=== PATIENT | female | born 1945 | race Hispanic/Latino ===

== ENCOUNTER 2021-03-28 18:05 | Emergency (ER) | payer OTHER ==
[~2021-03-28] VITALS: Ht 162.6 cm; Wt 59.0 kg
[2021-03-28 20:45] LABS: BASOPHILS % 0.3 % (0.0-1.0); EOSINOPHILS # (AUTO) 0.1 (0.0-0.4); EOSINOPHILS % 0.9 % (0.0-6.0); HEMATOCRIT 35.8 % (34.2-44.1); HEMOGLOBIN 11.8 g/dL (12.0-16.0); LYMPHOCYTES # (AUTO) 2.8 (1.0-3.2); LYMPHOCYTES % 36.5 % (18.0-39.1); MEAN CORPUSCULAR HEMOGLOBIN 30.7 pg (28-32); MEAN CORPUSCULAR VOLUME 93.2 fL (81-99); MONOCYTES # (AUTO) 0.6 (0.2-0.8); MONOCYTES % 7.9 % (4.4-11.3); NEUTROPHILS # (AUTO) 4.1 (2.1-6.9); PLATELET COUNT 247 x10e3/uL (140-360); RED BLOOD COUNT 3.84 x10e6/uL (3.6-5.1); RED CELL DISTRIBUTION WIDTH 13.3 % (11.7-14.4)
[2021-03-28 20:49] LABS: ANION GAP 15.6 mmol/L (8-16); BLOOD UREA NITROGEN 16 mg/dL (7-26); BUN/CREATININE RATIO 20 (6-25); CALCIUM 9.5 mg/dL (8.4-10.2); CARBON DIOXIDE 27 mmol/L (22-29); CHLORIDE 103 mmol/L (98-107); CREATININE, SERUM 0.81 mg/dL (0.57-1.11); EST GLOMERULAR FILTRATION RATE > 60 ML/MIN (60-); GLUCOSE 105 mg/dL (74-118); POTASSIUM 3.6 mmol/L (3.5-5.1); SODIUM 142 mmol/L (136-145)
[2021-03-28] MEDS ORDERED: IOPAMIDOL 370 MG/ML 200 ML INFUS..BTL INJ ONE (21:10)
[2021-03-28] MEDS ORDERED: SODIUM CHLORIDE 0.9% 50ML 50 ML ONE (21:10)
[2021-03-28 22:28] VITALS: BP 168/72
== END 2021-03-28 22:29 | disposition home or self-care (01) ==
LOC: ER 18:10
DX: M25.512 Pain in left shoulder (principal); W07.XXXA Fall from chair, initial encounter; Y92.008 Other place in unspecified non-institutional (private) residence as the place of occurrence of the external cause; I10 Essential (primary) hypertension; Z86.73 Personal history of transient ischemic attack (TIA), and cerebral infarction without residual deficits
CPT/HCPCS: 36415; 70450; 71045; 71260; 72125; 80048; 85025; 99284; Q9967

== ENCOUNTER 2021-08-02 08:07 | Observation (INO) | payer OTHER ==
[~2021-08-02] VITALS: Ht 162.6 cm; Wt 59.0 kg
[2021-08-02] VITALS (7 sets, daily range): BP systolic 132–136; BP diastolic 56–67
[2021-08-02 08:57] LABS: BASOPHILS % 0.2 % (0.0-1.0); EOSINOPHILS # (AUTO) 0.3 (0.0-0.4); EOSINOPHILS % 5.3 % (0.0-6.0); HEMATOCRIT 36.9 % (34.2-44.1); LYMPHOCYTES # (AUTO) 1.9 (1.0-3.2); LYMPHOCYTES % 37.8 % (18.0-39.1); MEAN CORPUSCULAR HEMOGLOBIN 30.5 pg (28-32); MEAN CORPUSCULAR HGB CONC 32.5 g/dL (31-35); MEAN CORPUSCULAR VOLUME 93.7 fL (81-99); MONOCYTES # (AUTO) 0.3 (0.2-0.8); MONOCYTES % 6.3 % (4.4-11.3); NEUTROPHILS # (AUTO) 2.4 (2.1-6.9); NEUTROPHILS % 49.6 % (38.7-80.0); PLATELET COUNT 312 x10e3/uL (140-360); RED BLOOD COUNT 3.94 x10e6/uL (3.6-5.1); RED CELL DISTRIBUTION WIDTH 14.4 % (11.7-14.4)
[2021-08-02] MEDS ORDERED: LORAZEPAM INJ 2 MG/ML VIAL IV ONE (09:00)
[2021-08-02 09:08] LABS: CLARITY,URINE SL CLOUDY (CLEAR); COLOR,URINE YELLOW (YELLOW)
[2021-08-02 09:09] LABS: KETONES,URINE NEGATIVE (NEGATIVE); LEUKOCYTE ESTERASE ,URINE NEGATIVE (NEGATIVE); NITRITE,URINE NEGATIVE (NEGATIVE); PROTEIN,URINE DIPSTICK TRACE (NEGATIVE); URINE UROBILINOGEN 0.2 mg/dL (0.2 - 1)
[2021-08-02 09:10] LABS: AMPHETAMINES SCREEN,URINE NEGATIVE (NEGATIVE); BENZODIAZEPINES SCREEN,URINE POSITIVE (NEGATIVE); PHENCYCLIDINE SCREEN,URINE NEGATIVE (NEGATIVE)
[2021-08-02 09:11] LABS: INR 1.05; PROTHROMBIN TIME 13.9 seconds (11.9-14.5)
[2021-08-02 09:12] LABS: PARTIAL THROMBOPLASTIN TIME 33.2 seconds (23.8-35.5)
[2021-08-02 09:16] LABS: ALBUMIN 4.2 g/dL (3.5-5.0); ALBUMIN/GLOBULIN RATIO 1.1 (0.8-2.0); ANION GAP 17.8 mmol/L (8-16); CALCIUM 9.3 mg/dL (8.4-10.2); CREATININE, SERUM 0.81 mg/dL (0.57-1.11); MAGNESIUM 1.9 MG/DL (1.3-2.1); POTASSIUM 3.8 mmol/L (3.5-5.1)
[2021-08-02 09:22] LABS: CREATINE KINASE MB 0.7 ng/mL (0-5.0)
[2021-08-02 09:35] LABS: BACTERIA,URINE RARE /HPF; EPITHELIAL CELLS,URINE FEW /LPF; RBC,URINE 0-5 /HPF (0-5); WBC,URINE (MAN) 0-5 /HPF (0-5)
[2021-08-02] MEDS ORDERED: LEVETIRACETAM 500MG/5ML VIAL 1,000 MG in SODIUM CHLORIDE 0.9% 100 ML 100 ML IV ONE (10:15)
[2021-08-02] MEDS ORDERED: ONDANSETRON HCL INJ 2MG/ML 2ML 2 MG/ML VIAL IV PRN (10:15)
[2021-08-02] MEDS ORDERED: SODIUM CHLORIDE 0.9% 1000ML 1,000 ML IV SCH (10:15)
[2021-08-02] MEDS ORDERED: PROZAC40 MG PO (12:33)
[2021-08-02] MEDS ORDERED: ALPRAZOLAM0.5 MG PO (12:33)
[2021-08-02] MEDS ORDERED: LEVOTHYROXINE25 MC1 PO (12:33)
[2021-08-02] MEDS ORDERED: MULTI-VITAMIN1 EACH PO (12:33)
[2021-08-02] MEDS ORDERED: AMLODIPINE BESYL5 MG PO (12:33)
[2021-08-02] MEDS ORDERED: IRBESARTAN150 MG PO (12:33)
[2021-08-02] MEDS ORDERED: LAMOTRIGINE100 MG PO (12:33)
[2021-08-02] MEDS ORDERED: TRICOR145 MG PO (12:33)
[2021-08-02] MEDS ORDERED: METOPROLOL SUCC50 MG PO (12:33)
[2021-08-02] MEDS ORDERED: METOPROLOL TART50 MG PO (12:40)
[2021-08-02] MEDS ORDERED: METOPROLOL SUCC25 MG PO (12:51)
[2021-08-02 14:07] LABS: CREATINE KINASE MB 0.9 ng/mL (0-5.0)
[2021-08-02] MEDS: LAMOTRIGINE 25 MG TAB PO SCH ×2 (17:37→20:49)
[2021-08-02] MEDS ORDERED: MIRTAZAPINE15 MG PO (17:40)
[2021-08-02 18:53] LABS: CREATINE KINASE MB 1.1 ng/mL (0-5.0)
[2021-08-02] MEDS ORDERED: AMLODIPINE BESYLATE 5 MG TAB PO SCH (21:00)
[2021-08-02] MEDS ORDERED: ALPRAZOLAM 0.25 MG TAB PO SCH (21:00)
[2021-08-02] MEDS ORDERED: MIRTAZAPINE 15 MG TAB PO SCH (21:00)
[2021-08-03] VITALS: BP 109/44
[2021-08-03 04:00] VITALS: BP 134/63
[2021-08-03] MEDS: LAMOTRIGINE 25 MG TAB PO SCH ×2 (05:26→09:19)
[2021-08-03] MEDS ORDERED: LEVOTHYROXINE SODIUM 25 MCG TABLET PO SCH (06:00)
[2021-08-03 06:30] LABS: BASOPHILS % 0.3 % (0.0-1.0); EOSINOPHILS # (AUTO) 0.3 (0.0-0.4); EOSINOPHILS % 5.1 % (0.0-6.0); HEMATOCRIT 36.7 % (34.2-44.1); HEMOGLOBIN 11.9 g/dL (12.0-16.0); LYMPHOCYTES # (AUTO) 3.1 (1.0-3.2); LYMPHOCYTES % 50.8 % (18.0-39.1); MEAN CORPUSCULAR HEMOGLOBIN 30.2 pg (28-32); MEAN CORPUSCULAR HGB CONC 32.4 g/dL (31-35); MEAN CORPUSCULAR VOLUME 93.1 fL (81-99); MONOCYTES # (AUTO) 0.5 (0.2-0.8); MONOCYTES % 8.3 % (4.4-11.3); NEUTROPHILS # (AUTO) 2.2 (2.1-6.9); NEUTROPHILS % 35.2 % (38.7-80.0); PLATELET COUNT 261 x10e3/uL (140-360); RED BLOOD COUNT 3.94 x10e6/uL (3.6-5.1); RED CELL DISTRIBUTION WIDTH 14.4 % (11.7-14.4)
[2021-08-03 06:57] LABS: ALBUMIN 3.7 g/dL (3.5-5.0); CALCIUM 8.9 mg/dL (8.4-10.2); CHOL/HDL RATIO 2.6 (3.0-3.6); CREATININE, SERUM 0.66 mg/dL (0.57-1.11)
[2021-08-03 07:24] LABS: CREATINE KINASE MB 2.4 ng/mL (0-5.0)
[2021-08-03 07:46] VITALS: BP 140/62
[2021-08-03 08:43] VITALS: BP 140/62
[2021-08-03] MEDS ORDERED: METOPROLOL SUCCINATE 50 MG TAB XL PO SCH (09:00)
[2021-08-03] MEDS ORDERED: IRBESARTAN 150 MG TAB PO SCH (09:00)
[2021-08-03] MEDS ORDERED: MULTIVITAMINS/MINERALS TAB PO SCH (09:00)
[2021-08-03] MEDS ORDERED: LEVETIRACETAM 500 MG TAB PO SCH (09:00)
[2021-08-03] MEDS ORDERED: FLUOXETINE HCL 20 MG CAP PO SCH (09:00)
[2021-08-03] MEDS ORDERED: KEPPRA500 MG PO (10:27)
[2021-08-03] MEDS ORDERED: FENOFIBRATE 145 MG TAB PO SCH (11:30)
== END 2021-08-03 11:24 | disposition home or self-care (01) ==
LOC: ER 08:43 → ERHOLD 10:18 → MED/SURG 11:21
PROVIDERS: ADMIT Internal Medicine; ATTEND Internal Medicine
DX: R56.9 Unspecified convulsions (principal); I69.354 Hemiplegia and hemiparesis following cerebral infarction affecting left non-dominant side; F32.9 Major depressive disorder, single episode, unspecified; F41.9 Anxiety disorder, unspecified; Z20.822 Contact with and (suspected) exposure to COVID-19; I10 Essential (primary) hypertension
CPT/HCPCS: 36415; 70450; 71045; 80053; 80061; 80307; 81001; 82550; 82553; 83735; 83880; 84484; 85025; 85610; 85730; 87086; 93005; 99284; G0378; J2060; J7030; U0002

== ENCOUNTER 2022-07-27 14:04 | Inpatient (IN) | payer OTHER ==
[~2022-07-27] VITALS: Ht 315 cm; Wt 59.0 kg
[~2022-07-27 14:04] MED LIST: ALPRAZOLAM0.5 MG PO; AMLODIPINE BESYL5 MG PO; IRBESARTAN150 MG PO; KEPPRA500 MG PO; LAMOTRIGINE100 MG PO; LEVOTHYROXINE25 MC1 PO; METOPROLOL SUCC25 MG PO; METOPROLOL SUCC50 MG PO; METOPROLOL TART50 MG PO; MIRTAZAPINE15 MG PO; MULTI-VITAMIN1 EACH PO; PROZAC40 MG PO; TRICOR145 MG PO
[2022-07-27] MEDS ORDERED: ONDANSETRON HCL INJ 2MG/ML 2ML 2 MG/ML VIAL IV STA (15:20)
[2022-07-27] MEDS ORDERED: SODIUM CHLORIDE 0.9% 1000ML 500 ML IV STA (15:20)
[2022-07-27] MEDS ORDERED: Morphine 2mg Syringe 2 MG/ML SYR IV STA (15:20)
[2022-07-27 16:13] LABS: BASOPHILS % 0.1 % (0.0-1.0); EOSINOPHILS % 0.1 % (0.0-6.0); HEMATOCRIT 32.3 % (34.2-44.1); HEMOGLOBIN 10.2 g/dL (12.0-16.0); LYMPHOCYTES # (AUTO) 1.7 (1.0-3.2); LYMPHOCYTES % 12.2 % (18.0-39.1); MEAN CORPUSCULAR HEMOGLOBIN 30.5 pg (28-32); MEAN CORPUSCULAR HGB CONC 31.6 g/dL (31-35); MEAN CORPUSCULAR VOLUME 96.7 fL (81-99); MONOCYTES # (AUTO) 0.9 (0.2-0.8); MONOCYTES % 6.3 % (4.4-11.3); NEUTROPHILS # (AUTO) 11.4 (2.1-6.9); NEUTROPHILS % 80.2 % (38.7-80.0); PLATELET COUNT 307 x10e3/uL (140-360); RED BLOOD COUNT 3.34 x10e6/uL (3.6-5.1); RED CELL DISTRIBUTION WIDTH 14.5 % (11.7-14.4)
[2022-07-27 16:22] LABS: INR 0.97; PROTHROMBIN TIME 13.8 seconds (11.9-14.5)
[2022-07-27 16:23] LABS: PARTIAL THROMBOPLASTIN TIME 32.1 seconds (23.8-35.5)
[2022-07-27 16:32] LABS: ALBUMIN/GLOBULIN RATIO 1.1 (0.8-2.0); CALCIUM 9.5 mg/dL (8.4-10.2); CREATININE, SERUM 1.25 mg/dL (0.57-1.11)
[2022-07-27 16:39] LABS: CREATINE KINASE MB 4.6 ng/mL (0-5.0)
[2022-07-27 17:42] LABS: CLARITY,URINE CLEAR (CLEAR); COLOR,URINE YELLOW (YELLOW); KETONES,URINE NEGATIVE (NEGATIVE); LEUKOCYTE ESTERASE ,URINE NEGATIVE (NEGATIVE); NITRITE,URINE NEGATIVE (NEGATIVE); PROTEIN,URINE DIPSTICK NEGATIVE (NEGATIVE); URINE UROBILINOGEN 0.2 mg/dL (0.2 - 1)
[2022-07-27 18:02] LABS: BACTERIA,URINE RARE /HPF; EPITHELIAL CELLS,URINE RARE /LPF; RBC,URINE 0-5 /HPF (0-5); WBC,URINE (MAN) 0-5 /HPF (0-5)
[2022-07-27] MEDS ORDERED: ONDANSETRON HCL INJ 2MG/ML 2ML 2 MG/ML VIAL IV PRN (19:15)
[2022-07-27] MEDS ORDERED: SODIUM CHLORIDE 0.9% 1000ML 1,000 ML IV ONE (19:15)
[2022-07-27] MEDS ORDERED: IOPAMIDOL 370 MG/ML 100 ML INFUS..BTL INJ ONE (22:27)
[2022-07-27 22:34] VITALS: BP 142/80
[2022-07-27] MEDS: ACETAMINOPHEN 325 MG TAB PO PRN (22:59)
[2022-07-27 23:00] VITALS: BP 142/80
[2022-07-27 23:38] LABS: CREATINE KINASE MB 6.1 ng/mL (0-5.0)
[2022-07-28] VITALS (7 sets, daily range): BP systolic 126–145; BP diastolic 63–79
[2022-07-28 05:35] LABS: EOSINOPHILS % 0.3 % (0.0-6.0); HEMATOCRIT 27.1 % (34.2-44.1); LYMPHOCYTES % 18.1 % (18.0-39.1); MEAN CORPUSCULAR HEMOGLOBIN 30.6 pg (28-32); MEAN CORPUSCULAR HGB CONC 33.2 g/dL (31-35); MEAN CORPUSCULAR VOLUME 92.2 fL (81-99); MONOCYTES # (AUTO) 0.4 (0.2-0.8); MONOCYTES % 6.3 % (4.4-11.3); NEUTROPHILS # (AUTO) 4.3 (2.1-6.9); PLATELET COUNT 230 x10e3/uL (140-360); RED BLOOD COUNT 2.94 x10e6/uL (3.6-5.1); RED CELL DISTRIBUTION WIDTH 14.2 % (11.7-14.4)
[2022-07-28 05:55] LABS: ANION GAP 14.1 mmol/L (8-16); CALCIUM 8.3 mg/dL (8.4-10.2); CREATININE, SERUM 0.69 mg/dL (0.57-1.11); POTASSIUM 4.1 mmol/L (3.5-5.1)
[2022-07-28 06:10] LABS: CREATINE KINASE MB 5.6 ng/mL (0-5.0)
[2022-07-28] MEDS ORDERED: DEXAMETHASONE SOD PHOS 10 MG/1 ML VIAL IV SCH (09:15)
[2022-07-28] MEDS ORDERED: SODIUM CHLORIDE 0.9% 250ML 0 ML ONE (09:50)
[2022-07-28] MEDS: Morphine 4mg INJECTION 4 MG/ML INJ IV PRN (10:04)
[2022-07-28] MEDS: DEXTROSE 5%/0.45% SOD CHL 1,000 ML IV SCH ×2 (10:06→18:54)
[2022-07-28] MEDS: FENOFIBRATE 145 MG TAB PO SCH (10:07)
[2022-07-28] MEDS ORDERED: ONDANSETRON HCL 4 MG ORAL DISINTEGRATING TAB PO PRN (10:30)
[2022-07-28] MEDS ORDERED: REMDESIVIR 100MG 200 MG in SODIUM CHLORIDE 0.9% 100 ML IV ONE (14:00)
[2022-07-28] MEDS: LAMOTRIGINE 100 MG TAB PO SCH ×3 (15:40→21:34)
[2022-07-28] MEDS ORDERED: ENOXAPARIN 30 MG/0.3 ML SYR SC SCH (17:00)
[2022-07-28] MEDS: ASCORBIC ACID 500 MG TAB PO SCH (18:53)
[2022-07-28] MEDS: LEVETIRACETAM 500 MG TAB PO SCH (18:53)
[2022-07-28] MEDS: ENOXAPARIN 30 MG/0.3 ML SYR SC SCH (18:54)
[2022-07-28] MEDS: ALPRAZOLAM 0.25 MG TAB PO SCH (21:34)
[2022-07-28] MEDS: AMLODIPINE BESYLATE 5 MG TAB PO SCH (21:34)
[2022-07-28] MEDS: MIRTAZAPINE 15 MG TAB PO SCH (21:34)
[2022-07-29] VITALS (7 sets, daily range): BP systolic 123–134; BP diastolic 60–67
[2022-07-29] MEDS: Morphine 4mg INJECTION 4 MG/ML INJ IV PRN ×3 (02:31→13:00)
[2022-07-29] MEDS: DEXTROSE 5%/0.45% SOD CHL 1,000 ML IV SCH ×2 (05:48→16:51)
[2022-07-29] MEDS: LAMOTRIGINE 100 MG TAB PO SCH ×5 (05:48→20:51)
[2022-07-29] MEDS: LEVOTHYROXINE SODIUM 25 MCG TABLET PO SCH (05:48)
[2022-07-29 05:55] LABS: BASOPHILS % 0.2 % (0.0-1.0); HEMATOCRIT 26.9 % (34.2-44.1); HEMOGLOBIN 8.9 g/dL (12.0-16.0); LYMPHOCYTES # (AUTO) 1.2 (1.0-3.2); LYMPHOCYTES % 18.3 % (18.0-39.1); MEAN CORPUSCULAR HEMOGLOBIN 30.8 pg (28-32); MEAN CORPUSCULAR HGB CONC 33.1 g/dL (31-35); MEAN CORPUSCULAR VOLUME 93.1 fL (81-99); MONOCYTES # (AUTO) 0.5 (0.2-0.8); NEUTROPHILS # (AUTO) 4.9 (2.1-6.9); PLATELET COUNT 223 x10e3/uL (140-360); RED BLOOD COUNT 2.89 x10e6/uL (3.6-5.1); RED CELL DISTRIBUTION WIDTH 14.1 % (11.7-14.4)
[2022-07-29 06:55] LABS: ALBUMIN 3.2 g/dL (3.5-5.0); ALBUMIN/GLOBULIN RATIO 0.9 (0.8-2.0); ANION GAP 14.1 mmol/L (8-16); CALCIUM 8.6 mg/dL (8.4-10.2); CREATININE, SERUM 0.65 mg/dL (0.57-1.11); POTASSIUM 4.1 mmol/L (3.5-5.1)
[2022-07-29] MEDS: DEXAMETHASONE SOD PHOS 10 MG/1 ML VIAL IV SCH (09:33)
[2022-07-29] MEDS: CEFTRIAXONE 2 GM in SODIUM CHLORIDE 0.9% 100 ML IV SCH (09:34)
[2022-07-29] MEDS: IRBESARTAN 150 MG TAB PO SCH (09:37)
[2022-07-29] MEDS: LEVETIRACETAM 500 MG TAB PO SCH ×2 (09:38→16:51)
[2022-07-29] MEDS: METOPROLOL SUCCINATE 25 MG TAB XL PO SCH (09:39)
[2022-07-29] MEDS: FLUOXETINE HCL 20 MG CAP PO SCH (09:39)
[2022-07-29] MEDS: MULTIVITAMINS/MINERALS TAB PO SCH (09:39)
[2022-07-29] MEDS: ZINC SULFATE 50 MG CAP PO SCH (09:40)
[2022-07-29] MEDS: ENOXAPARIN 30 MG/0.3 ML SYR SC SCH ×2 (09:40→16:52)
[2022-07-29] MEDS: ASCORBIC ACID 500 MG TAB PO SCH ×2 (09:40→16:51)
[2022-07-29] MEDS: FENOFIBRATE 145 MG TAB PO SCH (12:39)
[2022-07-29] MEDS: REMDESIVIR 100MG 100 MG in SODIUM CHLORIDE 0.9% 100 ML IV SCH (14:00)
[2022-07-29] MEDS: ALPRAZOLAM 0.25 MG TAB PO SCH (20:51)
[2022-07-29] MEDS: MIRTAZAPINE 15 MG TAB PO SCH (20:51)
[2022-07-29] MEDS: AMLODIPINE BESYLATE 5 MG TAB PO SCH (20:51)
[2022-07-29] MEDS: ACETAMINOPHEN 325 MG TAB PO PRN (20:51)
[2022-07-30] MEDS: ACETAMINOPHEN 325 MG TAB PO PRN ×3 (01:30→16:36)
[2022-07-30] MEDS: DEXTROSE 5%/0.45% SOD CHL 1,000 ML IV SCH ×3 (02:59→20:41)
[2022-07-30] MEDS: LEVOTHYROXINE SODIUM 25 MCG TABLET PO SCH (05:44)
[2022-07-30] MEDS: LAMOTRIGINE 100 MG TAB PO SCH ×5 (05:44→20:41)
[2022-07-30 08:09] VITALS: BP 140/68
[2022-07-30 08:17] VITALS: BP 140/68
[2022-07-30 08:20] LABS: BASOPHILS % 0.2 % (0.0-1.0); HEMATOCRIT 28.6 % (34.2-44.1); HEMOGLOBIN 9.4 g/dL (12.0-16.0); LYMPHOCYTES # (AUTO) 1.2 (1.0-3.2); LYMPHOCYTES % 13.6 % (18.0-39.1); MEAN CORPUSCULAR HEMOGLOBIN 30.9 pg (28-32); MEAN CORPUSCULAR HGB CONC 32.9 g/dL (31-35); MEAN CORPUSCULAR VOLUME 94.1 fL (81-99); MONOCYTES # (AUTO) 0.5 (0.2-0.8); MONOCYTES % 5.8 % (4.4-11.3); NEUTROPHILS # (AUTO) 6.8 (2.1-6.9); NEUTROPHILS % 78.9 % (38.7-80.0); PLATELET COUNT 272 x10e3/uL (140-360); RED BLOOD COUNT 3.04 x10e6/uL (3.6-5.1); RED CELL DISTRIBUTION WIDTH 14.3 % (11.7-14.4)
[2022-07-30 08:40] LABS: ALBUMIN 3.2 g/dL (3.5-5.0); ALBUMIN/GLOBULIN RATIO 0.8 (0.8-2.0); ANION GAP 16.4 mmol/L (8-16); CALCIUM 8.7 mg/dL (8.4-10.2); CREATININE, SERUM 0.71 mg/dL (0.57-1.11); POTASSIUM 3.4 mmol/L (3.5-5.1)
[2022-07-30] MEDS: CEFTRIAXONE 2 GM in SODIUM CHLORIDE 0.9% 100 ML IV SCH (09:24)
[2022-07-30] MEDS: AZITHROMYCIN 250 MG TAB PO SCH (09:25)
[2022-07-30] MEDS: ZINC SULFATE 50 MG CAP PO SCH (09:26)
[2022-07-30] MEDS: MULTIVITAMINS/MINERALS TAB PO SCH (09:26)
[2022-07-30] MEDS: ASCORBIC ACID 500 MG TAB PO SCH ×2 (09:26→16:34)
[2022-07-30] MEDS: FLUOXETINE HCL 20 MG CAP PO SCH (09:26)
[2022-07-30] MEDS: IRBESARTAN 150 MG TAB PO SCH (09:27)
[2022-07-30] MEDS: LEVETIRACETAM 500 MG TAB PO SCH ×2 (09:27→16:34)
[2022-07-30] MEDS: METOPROLOL SUCCINATE 25 MG TAB XL PO SCH (09:27)
[2022-07-30] MEDS: DEXAMETHASONE SOD PHOS 10 MG/1 ML VIAL IV SCH (09:27)
[2022-07-30] MEDS: ENOXAPARIN 30 MG/0.3 ML SYR SC SCH ×2 (09:28→16:34)
[2022-07-30 11:13] VITALS: BP 145/60
[2022-07-30] MEDS: FENOFIBRATE 145 MG TAB PO SCH (11:28)
[2022-07-30] MEDS: REMDESIVIR 100MG 100 MG in SODIUM CHLORIDE 0.9% 100 ML IV SCH (13:29)
[2022-07-30 16:00] VITALS: BP 125/59
[2022-07-30 19:15] VITALS: BP 155/59
[2022-07-30 20:00] VITALS: BP_SYST 155; BP_SYST 159; BP_DIAS 59; BP_DIAS 72
[2022-07-30] MEDS: MIRTAZAPINE 15 MG TAB PO SCH (20:38)
[2022-07-30] MEDS: ALPRAZOLAM 0.25 MG TAB PO SCH (20:38)
[2022-07-30] MEDS: AMLODIPINE BESYLATE 5 MG TAB PO SCH (20:41)
[2022-07-31] VITALS (9 sets, daily range): BP systolic 98–160; BP diastolic 61–74
[2022-07-31] MEDS: LAMOTRIGINE 100 MG TAB PO SCH ×6 (05:00→21:44)
[2022-07-31] MEDS: LEVOTHYROXINE SODIUM 25 MCG TABLET PO SCH (05:20)
[2022-07-31 07:21] LABS: BASOPHILS % 0.2 % (0.0-1.0); HEMATOCRIT 30.1 % (34.2-44.1); HEMOGLOBIN 10.3 g/dL (12.0-16.0); LYMPHOCYTES # (AUTO) 1.4 (1.0-3.2); LYMPHOCYTES % 15.4 % (18.0-39.1); MEAN CORPUSCULAR HEMOGLOBIN 31.1 pg (28-32); MEAN CORPUSCULAR HGB CONC 34.2 g/dL (31-35); MEAN CORPUSCULAR VOLUME 90.9 fL (81-99); MONOCYTES # (AUTO) 0.6 (0.2-0.8); MONOCYTES % 7.1 % (4.4-11.3); NEUTROPHILS # (AUTO) 6.7 (2.1-6.9); NEUTROPHILS % 73.9 % (38.7-80.0); PLATELET COUNT 332 x10e3/uL (140-360); RED BLOOD COUNT 3.31 x10e6/uL (3.6-5.1); RED CELL DISTRIBUTION WIDTH 14.1 % (11.7-14.4)
[2022-07-31 07:46] LABS: ALBUMIN 3.2 g/dL (3.5-5.0); ANION GAP 14.4 mmol/L (8-16); CALCIUM 8.4 mg/dL (8.4-10.2); CREATININE, SERUM 0.67 mg/dL (0.57-1.11); POTASSIUM 3.4 mmol/L (3.5-5.1)
[2022-07-31] MEDS: CEFTRIAXONE 2 GM in SODIUM CHLORIDE 0.9% 100 ML IV SCH (08:45)
[2022-07-31] MEDS: DEXAMETHASONE SOD PHOS 10 MG/1 ML VIAL IV SCH (08:45)
[2022-07-31] MEDS: IRBESARTAN 150 MG TAB PO SCH (08:46)
[2022-07-31] MEDS: LEVETIRACETAM 500 MG TAB PO SCH ×2 (08:46→16:39)
[2022-07-31] MEDS: METOPROLOL SUCCINATE 25 MG TAB XL PO SCH (08:46)
[2022-07-31] MEDS: ENOXAPARIN 30 MG/0.3 ML SYR SC SCH ×2 (08:46→16:39)
[2022-07-31] MEDS: ASCORBIC ACID 500 MG TAB PO SCH ×2 (08:46→16:39)
[2022-07-31] MEDS: MULTIVITAMINS/MINERALS TAB PO SCH (08:46)
[2022-07-31] MEDS: AZITHROMYCIN 250 MG TAB PO SCH (08:46)
[2022-07-31] MEDS: FLUOXETINE HCL 20 MG CAP PO SCH (08:46)
[2022-07-31] MEDS: ZINC SULFATE 50 MG CAP PO SCH (08:46)
[2022-07-31] MEDS: FENOFIBRATE 145 MG TAB PO SCH (11:55)
[2022-07-31] MEDS: REMDESIVIR 100MG 100 MG in SODIUM CHLORIDE 0.9% 100 ML IV SCH (13:40)
[2022-07-31] MEDS ORDERED: ZIPRASIDONE 20 MG VIAL IM STA (20:13)
[2022-07-31] MEDS ORDERED: QUETIAPINE FUMARATE 25 MG TAB PO SCH (21:00)
[2022-07-31] MEDS: MIRTAZAPINE 15 MG TAB PO SCH (21:42)
[2022-07-31] MEDS: ALPRAZOLAM 0.25 MG TAB PO SCH (21:44)
[2022-07-31] MEDS: AMLODIPINE BESYLATE 5 MG TAB PO SCH (21:44)
[2022-08-01] VITALS (7 sets, daily range): BP systolic 121–149; BP diastolic 53–74
[2022-08-01] MEDS: LEVOTHYROXINE SODIUM 25 MCG TABLET PO SCH (06:19)
[2022-08-01 07:06] LABS: BASOPHILS % 0.3 % (0.0-1.0); EOSINOPHILS # (AUTO) 0.3 (0.0-0.4); EOSINOPHILS % 3.1 % (0.0-6.0); HEMATOCRIT 27.7 % (34.2-44.1); HEMOGLOBIN 8.8 g/dL (12.0-16.0); LYMPHOCYTES # (AUTO) 2.7 (1.0-3.2); LYMPHOCYTES % 31.7 % (18.0-39.1); MEAN CORPUSCULAR HEMOGLOBIN 30.2 pg (28-32); MEAN CORPUSCULAR HGB CONC 31.8 g/dL (31-35); MEAN CORPUSCULAR VOLUME 95.2 fL (81-99); MONOCYTES # (AUTO) 0.7 (0.2-0.8); MONOCYTES % 7.5 % (4.4-11.3); NEUTROPHILS # (AUTO) 4.8 (2.1-6.9); NEUTROPHILS % 55.4 % (38.7-80.0); PLATELET COUNT 320 x10e3/uL (140-360); RED BLOOD COUNT 2.91 x10e6/uL (3.6-5.1); RED CELL DISTRIBUTION WIDTH 14.6 % (11.7-14.4)
[2022-08-01 07:29] LABS: ALBUMIN 2.9 g/dL (3.5-5.0); ALBUMIN/GLOBULIN RATIO 0.9 (0.8-2.0); ANION GAP 12.3 mmol/L (8-16); CALCIUM 8.4 mg/dL (8.4-10.2); CREATININE, SERUM 0.72 mg/dL (0.57-1.11); POTASSIUM 3.3 mmol/L (3.5-5.1)
[2022-08-01] MEDS ORDERED: ZIPRASIDONE 20 MG VIAL IM PRN (08:15)
[2022-08-01] MEDS ORDERED: POTASSIUM CHLORIDE 10MEQ EA PO ONE (08:15)
[2022-08-01] MEDS: CEFTRIAXONE 2 GM in SODIUM CHLORIDE 0.9% 100 ML IV SCH (09:00)
[2022-08-01] MEDS: DEXAMETHASONE SOD PHOS 10 MG/1 ML VIAL IV SCH (09:00)
[2022-08-01] MEDS: IRBESARTAN 150 MG TAB PO SCH (09:00)
[2022-08-01] MEDS: LEVETIRACETAM 500 MG TAB PO SCH ×2 (09:01→16:46)
[2022-08-01] MEDS: APIXAB 2.5 MG TABLET PO SCH ×2 (09:01→16:46)
[2022-08-01] MEDS: FLUOXETINE HCL 20 MG CAP PO SCH (09:02)
[2022-08-01] MEDS: ZINC SULFATE 50 MG CAP PO SCH (09:02)
[2022-08-01] MEDS: MULTIVITAMINS/MINERALS TAB PO SCH (09:02)
[2022-08-01] MEDS: LAMOTRIGINE 100 MG TAB PO SCH ×4 (09:02→20:38)
[2022-08-01] MEDS: ASCORBIC ACID 500 MG TAB PO SCH ×2 (09:02→16:46)
[2022-08-01] MEDS: METOPROLOL SUCCINATE 25 MG TAB XL PO SCH (09:02)
[2022-08-01] MEDS: FENOFIBRATE 145 MG TAB PO SCH (12:20)
[2022-08-01] MEDS: REMDESIVIR 100MG 100 MG in SODIUM CHLORIDE 0.9% 100 ML IV SCH (14:00)
[2022-08-01] MEDS: QUETIAPINE FUMARATE 25 MG TAB PO SCH (16:46)
[2022-08-01] MEDS ORDERED: QUETIAPINE FUMARATE 25 MG TAB PO SCH (17:00)
[2022-08-01] MEDS: MIRTAZAPINE 15 MG TAB PO SCH (20:38)
[2022-08-01] MEDS: ALPRAZOLAM 0.25 MG TAB PO SCH (20:38)
[2022-08-01] MEDS: AMLODIPINE BESYLATE 5 MG TAB PO SCH (20:38)
[2022-08-02] VITALS: BP 104/49
[2022-08-02 04:00] VITALS: BP 131/58
[2022-08-02] MEDS: LAMOTRIGINE 100 MG TAB PO SCH ×4 (05:27→16:12)
[2022-08-02] MEDS: LEVOTHYROXINE SODIUM 25 MCG TABLET PO SCH (05:27)
[2022-08-02 06:27] LABS: BASOPHILS % 0.2 % (0.0-1.0); EOSINOPHILS # (AUTO) 0.3 (0.0-0.4); EOSINOPHILS % 2.5 % (0.0-6.0); HEMATOCRIT 28.4 % (34.2-44.1); HEMOGLOBIN 9.1 g/dL (12.0-16.0); LYMPHOCYTES # (AUTO) 2.4 (1.0-3.2); LYMPHOCYTES % 20.2 % (18.0-39.1); MEAN CORPUSCULAR HEMOGLOBIN 30.6 pg (28-32); MEAN CORPUSCULAR VOLUME 95.6 fL (81-99); MONOCYTES # (AUTO) 0.6 (0.2-0.8); MONOCYTES % 5.1 % (4.4-11.3); NEUTROPHILS # (AUTO) 8.3 (2.1-6.9); NEUTROPHILS % 69.7 % (38.7-80.0); PLATELET COUNT 322 x10e3/uL (140-360); RED BLOOD COUNT 2.97 x10e6/uL (3.6-5.1); RED CELL DISTRIBUTION WIDTH 14.7 % (11.7-14.4)
[2022-08-02 06:56] LABS: ALBUMIN 2.9 g/dL (3.5-5.0); ALBUMIN/GLOBULIN RATIO 0.8 (0.8-2.0); ANION GAP 14.8 mmol/L (8-16); CALCIUM 8.3 mg/dL (8.4-10.2); CREATININE, SERUM 0.7 mg/dL (0.57-1.11); POTASSIUM 3.8 mmol/L (3.5-5.1)
[2022-08-02 07:56] VITALS: BP 101/62
[2022-08-02 08:06] VITALS: BP 101/62
[2022-08-02] MEDS: LEVETIRACETAM 500 MG TAB PO SCH ×2 (08:42→16:12)
[2022-08-02] MEDS: APIXAB 2.5 MG TABLET PO SCH ×2 (08:42→16:12)
[2022-08-02] MEDS: MULTIVITAMINS/MINERALS TAB PO SCH (08:42)
[2022-08-02] MEDS: ASCORBIC ACID 500 MG TAB PO SCH ×2 (08:42→16:12)
[2022-08-02] MEDS: FLUOXETINE HCL 20 MG CAP PO SCH (08:42)
[2022-08-02] MEDS: ZINC SULFATE 50 MG CAP PO SCH (08:43)
[2022-08-02] MEDS: IRBESARTAN 150 MG TAB PO SCH (08:43)
[2022-08-02] MEDS: METOPROLOL SUCCINATE 25 MG TAB XL PO SCH (08:44)
[2022-08-02] MEDS ORDERED: SODIUM CHLORIDE 0.9% 250ML 250 ML ONE (10:40)
[2022-08-02] MEDS: CEFTRIAXONE 2 GM in SODIUM CHLORIDE 0.9% 100 ML IV SCH (11:05)
[2022-08-02] MEDS: DEXAMETHASONE SOD PHOS 10 MG/1 ML VIAL IV SCH (11:05)
[2022-08-02] MEDS: ACETAMINOPHEN 325 MG TAB PO PRN (11:08)
[2022-08-02] MEDS: FENOFIBRATE 145 MG TAB PO SCH (11:08)
[2022-08-02 11:47] VITALS: BP 110/58
[2022-08-02 16:03] VITALS: BP 131/74
[2022-08-02] MEDS: QUETIAPINE FUMARATE 25 MG TAB PO SCH (16:12)
[2022-08-02] MEDS ORDERED: MAGNESIUM HYDROXIDE 30 ML UDC PO PRN (17:00)
[2022-08-02] MEDS ORDERED: MAGNESIUM HYDROXIDE 30 ML UDC PO NR (17:00)
[2022-08-02] MEDS ORDERED: SENNA-S TABLET PO SCH (17:00)
[2022-08-02] MEDS ORDERED: BISACODYL 10 MG SUPP PR NR (17:00)
[2022-08-02] MEDS ORDERED: ELIQUIS2.5 MG PO (17:23)
[2022-08-02] MEDS ORDERED: CELEBREX100 MG PO (17:24)
[2022-08-02] MEDS ORDERED: NEURONTIN100 MG PO (17:24)
[2022-08-02] MEDS ORDERED: SENNA-S LAXATI1 EACH PO (17:25)
== END 2022-08-02 18:46 | disposition home health service (06) | DRG 562 ==
LOC: ER 15:19 → ERHOLD 19:20 → MED/SURG3 22:03
PROVIDERS: ADMIT Internal Medicine; ATTEND Internal Medicine
PROC: 3E0333Z Introduction of Anti-inflammatory into Peripheral Vein, Percutaneous Approach (ICD-10-PCS; principal; 2022-07-28)
PROC: XW033E5 Introduction of Remdesivir Anti-infective into Peripheral Vein, Percutaneous Approach, New Technology Group 5 (ICD-10-PCS; 2022-07-28)
DX: S42.352A Displaced comminuted fracture of shaft of humerus, left arm, initial encounter for closed fracture (principal); J12.82 Pneumonia due to coronavirus disease 2019; U07.1 COVID-19; S52.572A Other intraarticular fracture of lower end of left radius, initial encounter for closed fracture; S22.42XA Multiple fractures of ribs, left side, initial encounter for closed fracture; I69.354 Hemiplegia and hemiparesis following cerebral infarction affecting left non-dominant side; R44.3 Hallucinations, unspecified; F05 Delirium due to known physiological condition; S62.232A Other displaced fracture of base of first metacarpal bone, left hand, initial encounter for closed fracture; V43.62XA Car passenger injured in collision with other type car in traffic accident, initial encounter; R07.9 Chest pain, unspecified; Y93.89 Activity, other specified; Y92.410 Unspecified street and highway as the place of occurrence of the external cause; R09.02 Hypoxemia; I10 Essential (primary) hypertension; G40.909 Epilepsy, unspecified, not intractable, without status epilepticus; S42.492A Other displaced fracture of lower end of left humerus, initial encounter for closed fracture
CPT/HCPCS: 36415; 70450; 71045; 71260; 72125; 72129; 72132; 74177; 80048; 80053; 81001; 82550; 82553; 84484; 85025; 85610; 85730; 87040; 93005; 94760; 94799; 96360; 99284; J0248; J0456; J0696; J1100; J1650; J2270; J2405; J3486; J7030; J7050; Q0162; Q9967